=== PATIENT | female | born 1955 | race African-American/Black ===

== ENCOUNTER 2020-05-17 12:17 | Emergency (ER) | payer SELFPAY ==
[2020-05-17] MEDS ORDERED: Sodium Chloride 0.9% 10 ML Syringe FLUSH PRN (12:32)
[2020-05-17] MEDS ORDERED: Sodium Chloride 0.9% 2.5 ML Syringe FLUSH PRN (12:32)
[2020-05-17] MEDS ORDERED: Lactated Ringers 1,000 ML IV ONE ×2 (12:42→13:56)
[2020-05-17] MEDS ORDERED: Aspirin 325 MG Tab PO ONE (12:42)
--- NOTE | 2020-05-17 12:45 | EDM.PDOC ---
ED [facility] GENERAL MEDICAL PROBLEM - General Chief Complaint: Chest Pain Stated Complaint: CHEST PAIN Time Seen by Provider: 05/17/20 12:27 Source of Information: Reports: Patient, Old Records History Limitations: Reports: No Limitations - History of Present Illness INITIAL COMMENTS - FREE TEXT/NARRATIVE: This is a 64-year-old female the past medical history of diabetes mellitus, hy pertension, hyperlipidemia, hepatitis B presenting with chest pain and palpitations. Onset of substernal chest pain around midnight tonight while at rest. Also noticed that her heart rate was fast. Chest pain described as "aching", nonradiating, constant. Nothing makes it better or worse. No history of prior chest pain like this. Denies any fever, recent illness, cough, hemoptysis, vomiting, diarrhea, leg swelling. No history of venous thromboembolism, lower extremity swelling or pain, recent surgery or immobilization or long travel, history of malignancy, history of hormone use. ROS: A 10-point review of systems was negative, except as noted in the HPI (or in the ROS section of this note). Past medical history: Reviewed, no additional pertinent history. Surgical history: Reviewed in system, no additional pertinent history. Social history: Reviewed in system, no additional pertinent history. Family history: Reviewed in system, no additional pertinent history. PHYSICAL EXAM Vital signs reviewed. Nursing notes reviewed. Constitutional: Awake, alert, non-distressed. Head: Normocephalic, atraumatic. Eyes: EOMI, conjunctiva normal, no discharge, no scleral icterus. Ears, Nose, Throat: External ears and nose normal, moist oral mucosa. Cardiovascular: Tachycardic, 2+ radial pulses bilaterally, capillary refill less than 2 seconds. RRR no MRG. No lower extremity edema. Pulmonary: normal work of breathing, no accessory muscle use. CTA BL. Abdomen/GI: Soft, nontender, nondistended, no guarding or rigidity, no masses. Musculoskeletal: No deformities. Integumentary: Appropriate color for ethnicity, warm, dry, no pallor or jaundice, no rash. Neurologic: Alert, answering questions appropriately, normal speech, no facial droop, moving all extremities well. Psychiatric: Appropriate mood and affect, normal thought process. sternal chest Pain Score (Numeric/FACES): 4 - Related Data Allergies Allergy/AdvReac Type Severity Reaction Status Date / Time No Known Allergies Allergy Verified 05/17/20 12:35 Home Meds: Home Meds Glimepiride 8 mg PO DAILY 05/17/20 [History] Losartan [Cozaar] 100 mg PO DAILY 05/17/20 [History] amLODIPine [Norvasc] 10 mg PO DAILY 05/17/20 [History] metFORMIN [Glucophage] 1,000 mg PO BID 05/17/20 [History] Past Medical History Cardiovascular History: Reports: CAD, Hypertension Endocrine/Metabolic History: Reports: Diabetes, Type II - Infectious Disease History Infectious Disease History: Reports: Chicken Pox - Past Surgical History Female Surgical History: Reports: Hysterectomy Social & Family History - Family History Family Medical History: Noncontributory - Tobacco Use Smoking Status *Q: Never Smoker - Alcohol Use Alcohol Use History: No - Recreational Drug Use Recreational Drug Use: No ED ROS GENERAL - Review of Systems Review Of Systems: See Below ED EXAM, GENERAL - Physical Exam Exam: See Below EKG INTERPRETATION EKG Interpretation Comments: 12-Lead ECG Interpretation Acquired: 12:21PM Rhythm: Sinus tachycardia Rate: 132 Turner: Normal Intervals: Normal Ectopy: None Ischemic Changes: None apparent RV Strain: No obvious RV strain pattern. ST Segments/T-Waves: No notable changes Interpretation: Unremarkable Course - Vital Signs Text/Narrative:: Considered arrhythmia, anemia, volume depletion, acute coronary syndrome, pulmonary embolism, thyroid disease, drug or alcohol intoxication, infection, etc. Initial heart rate 130 at the bedside, improved to the 80s after aspirin and 2 L of fluid. Twelve-lead EKG shows sinus tachycardia but no arrhythmia or acute ischemia, no evidence of right ventricular strain. Low risk by HEART score with a score of 3. Wells PE score 4.5 (moderate) with negative D-dimer. Patient is afebrile and gives no history to suggest infection. Hemoglobin is normal. Troponin testing is negative with constant chest pain greater than 6 hours. Glucose mildly elevated 235 with normal carbon dioxide. TSH is mildly elevated at 3.78. Chest x-ray is clear. Patient feels better after IV fluids and aspirin and her tachycardia has res olved. Her blood pressure is also much better. I reevaluated her at 1456 hrs. and she feels totally back to normal and is no longer symptomatic. Her chest discomfort has totally resolved. The etiology of her complaints is not entirely clear but there is no evidence of an emergency medical condition that warrants admission the hospital or further testing or specialist consultation. No objective evidence of myocardial ischemia or pulmonary embolism by blood work. Patient clinically does not appear volume depleted but did improve with fluids. She is well-appearing and stable to discharge home with outpatient primary care follow-up. No longer tachycardic after IV fluids. Plan: Patient is stable to discharge home with outpatient primary care clinic follow-up. Strict emergency department return precautions were provided, patient indicated understanding. All questions were answered prior to departure. Discharged in good condition. HEART Score for Major Cardiac Events RESULT SUMMARY: 3 points Low Score (0-3 points) Risk of MACE of 0.9-1.7%. INPUTS: History > 0 = Slightly suspicious EKG > 0 = Normal Age > 1 = 45-64 Risk factors > 2 = ?3 risk factors or history of atherosclerotic disease Initial troponin > 0 = ?normal limit Wells' Criteria for Pulmonary Embolism RESULT SUMMARY: 4.5 points Moderate risk group: 16.2% chance of PE in an ED population. Another study assigned scores ? 4 as PE Unlikely and had a 3% incidence of PE. Another study assigned scores > 4 as INPUTS: Clinical signs and symptoms of DVT > 0 = No PE is #1 diagnosis OR equally likely > 3 = Yes Heart rate > 100 > 1.5 = Yes Immobilization at least 3 days OR surgery in the previous 4 weeks > 0 = No Previous, objectively diagnosed PE or DVT > 0 = No Hemoptysis > 0 = No Malignancy w/ treatment within 6 months or palliative > 0 = No Last Recorded V/S: Last Vital Signs Temp 36.4 C 05/17/20 12:32 Pulse 88 05/17/20 14:28 Resp 18 05/17/20 14:28 BP 128/71 05/17/20 14:28 Pulse Ox 98 05/17/20 14:28 - Orders/Labs/Meds Orders: Active Orders 24 hr Category Date Time Status Cardiac Monitoring [RC] . DIRECTED Care 05/17/20 12:32 Active EKG Documentation Completion [RC] STAT Care 05/17/20 12:32 Active Pulse Oximetry [RC] ASDIRECTED Care 05/17/20 12:32 Active LACTATE WITH REFLEX [BG] Stat Lab 05/17/20 12:33 Ordered Sodium Chloride 0.9% [Saline Flush] Med 05/17/20 12:32 Active 10 ml FLUSH ASDIRECTED PRN Sodium Chloride 0.9% [Saline Flush] Med 05/17/20 12:32 Active 2.5 ml FLUSH ASDIRECTED PRN Saline Lock Insert [OM.PC] Stat Oth 05/17/20 12:32 Ordered Medication Orders Sodium Chloride (Saline Flush) 10 ml FLUSH ASDIRECTED PRN PRN Reason: Keep Vein Open Last Admin: 05/17/20 13:02 Dose: 10 ml Documented by: FLAKITA Sodium Chloride (Saline Flush) 2.5 ml FLUSH ASDIRECTED PRN PRN Reason: Keep Vein Open Last Admin: 05/17/20 13:02 Dose: 2.5 ml Documented by: FLAKITA Labs: Laboratory Tests 05/17/20 05/17/20 05/17/20 Range/Units 12:20 12:28 12:28 WBC 6.57 (4.0-11.0) K/uL RBC 4.91 (4.30-5.90) M/uL Hgb 14.0 (12.0-16.0) g/dL Hct 40.6 (36.0-46.0) % MCV 82.7 (80.0-98.0) fL MCH 28.5 (27.0-32.0) pg MCHC 34.5 (31.0-37.0) g/dL RDW Std Deviation 38.1 (28.0-62.0) fl RDW Coeff of Nikhil 13 (11.0-15.0) % Plt Count 130 L (150-400) K/uL MPV 11.40 (7.40-12.00) fL Neut % (Auto) 35.1 L (48.0-80.0) % Lymph % (Auto) 58.1 H (16.0-40.0) % [place] % (Auto) 5.8 (0.0-15.0) % Eos % (Auto) 0.8 (0.0-7.0) % Baso % (Auto) 0.2 (0.0-1.5) % Neut # (Auto) 2.3 (1.4-5.7) K/uL Lymph # (Auto) 3.8 H (0.6-2.4) K/uL [place] # (Auto) 0.4 (0.0-0.8) K/uL Eos # (Auto) 0.1 (0.0-0.7) K/uL Baso # (Auto) 0.0 (0.0-0.1) K/uL D-Dimer, Quantitative 0.33 (0.0-0.50) mg/L FEU Sodium 136 (136-145) mmol/L Potassium 3.9 (3.5-5.1) mmol/L Chloride 101 (98-107) mmol/L Carbon Dioxide 26.2 (21.0-32.0) mmol/L BUN 13 (7.0-18.0) mg/dL Creatinine 0.9 (0.6-1.0) mg/dL Est Cr Clr Drug Dosing TNP Estimated GFR (MDRD) > 60.0 ml/min Glucose 235 H (74-106) mg/dL Calcium 9.0 (8.5-10.1) mg/dL Total Bilirubin 0.4 (0.2-1.0) mg/dL AST 45 H (15-37) IU/L ALT 59 (14-63) IU/L Alkaline Phosphatase 106 (46-116) U/L Troponin I < 0.050 (0.000-0.056) ng/mL Total Protein 9.1 H (6.4-8.2) g/dL Albumin 4.1 (3.4-5.0) g/dL Globulin 5.0 H (2.6-4.0) g/dL Albumin/Globulin Ratio 0.8 L (0.9-1.6) TSH 3rd Generation (0.36-3.74) uIU/mL 05/17/20 Range/Units 12:28 WBC (4.0-11.0) K/uL RBC (4.30-5.90) M/uL Hgb (12.0-16.0) g/dL Hct (36.0-46.0) % MCV (80.0-98.0) fL MCH (27.0-32.0) pg MCHC (31.0-37.0) g/dL RDW Std Deviation (28.0-62.0) fl RDW Coeff of Nikhil (11.0-15.0) % Plt Count (150-400) K/uL MPV (7.40-12.00) fL Neut % (Auto) (48.0-80.0) % Lymph % (Auto) (16.0-40.0) % [place] % (Auto) (0.0-15.0) % Eos % (Auto) (0.0-7.0) % Baso % (Auto) (0.0-1.5) % Neut # (Auto) (1.4-5.7) K/uL Lymph # (Auto) (0.6-2.4) K/uL [place] # (Auto) (0.0-0.8) K/uL Eos # (Auto) (0.0-0.7) K/uL Baso # (Auto) (0.0-0.1) K/uL D-Dimer, Quantitative (0.0-0.50) mg/L FEU Sodium (136-145) mmol/L Potassium (3.5-5.1) mmol/L Chloride (98-107) mmol/L Carbon Dioxide (21.0-32.0) mmol/L BUN (7.0-18.0) mg/dL Creatinine (0.6-1.0) mg/dL Est Cr Clr Drug Dosing Estimated GFR (MDRD) ml/min Glucose (74-106) mg/dL Calcium (8.5-10.1) mg/dL Total Bilirubin (0.2-1.0) mg/dL AST (15-37) IU/L ALT (14-63) IU/L Alkaline Phosphatase (46-116) U/L Troponin I (0.000-0.056) ng/mL Total Protein (6.4-8.2) g/dL Albumin (3.4-5.0) g/dL Globulin (2.6-4.0) g/dL Albumin/Globulin Ratio (0.9-1.6) TSH 3rd Generation 3.78 H (0.36-3.74) uIU/mL Meds: Medications Generic Name Dose Route Start Last Admin Trade Name Theron PRN Reason Stop Dose Admin Sodium Chloride 10 ml 05/17/20 12:32 05/17/20 13:02 Saline Flush FLUSH 10 ml ASDIRECTED PRN Administration Keep Vein Open Sodium Chloride 2.5 ml 05/17/20 12:32 05/17/20 13:02 Saline Flush FLUSH 2.5 ml ASDIRECTED PRN Administration Keep Vein Open Discontinued Medications Generic Name Dose Route Start Last Admin Trade Name Theron PRN Reason Stop Dose Admin Aspirin 325 mg 05/17/20 12:42 05/17/20 12:57 Aspirin PO 05/17/20 12:43 325 mg ONETIME ONE Administration Lactated Ringer's 1,000 mls @ 999 mls/hr 05/17/20 12:42 05/17/20 12:57 Ringers, Lactated IV 05/17/20 13:42 999 mls/hr .BOLUS ONE Administration Lactated Ringer's 1,000 mls @ 999 mls/hr 05/17/20 13:56 05/17/20 14:05 Ringers, Lactated IV 05/17/20 14:56 999 mls/hr .BOLUS ONE Administration Departure - Departure Time of Disposition: 14:57 Disposition: Home, Self-Care 01 Condition: Good Clinical Impression: Atypical chest pain, Sinus tachycardia Instructions: Nonspecific Chest Pain, Adult, Sinus Tachycardia Referrals: [facility] - Family Practice [Provider Group] - 1 Week (Follow-up with your primary doctor or our family medicine clinic in 1 week for reevaluation.) Forms: ED Department Discharge Additional Instructions: You were seen in the emergency department for chest pain and fast heart rate. Your heart rate resolved with IV fluids and I am glad that your symptoms are gone. At this point, your EKG, x-rays, and blood work all look reassuring. I am not entirely certain what caused your symptoms of I am glad that you are feeling better at this point. We will let you go home and I would like for you to follow-up closely with your doctor in the next week for reevaluation. Return the ER immediately for worsening symptoms including repeat chest pain, shortness of breath, or any other new or concerning symptoms. Please return the emergency department immediately if your symptoms worsen or if you feel worse. Thank you for choosing the [facility] in [place] for your medical needs today. It was a pleasure caring for you. The following information is given to patients seen in the emergency department who are being discharged. This information is to outline your options for follow-up care. We provide all patients seen in our emergency department with a follow-up referral. The need for follow-up, as well as the timing and circumstances, are variable depending upon the specifics of your emergency department visit. If you don't have a primary care physician on staff, we will provide you with a referral. We always advise you to contact your personal physician following an emergency department visit to inform them of the circumstance of the visit and for follow-up with them and/or the need for any referrals to a consulting specialist. The emergency department will also refer you to a specialist when appropriate. This referral assures that you have the opportunity for follow-up care with a specialist. All of these measure are taken in an effort to provide you with optimal care, which includes your follow-up. Under all circumstances we always encourage you to contact your private physician who remains a resource for coordinating your care. When calling for follow-up care, please make the office aware that this follow-up is from your recent emergency room visit. If for any reason you are refused follow-up, please contact the [facility] Emergency Department at and asked to speak to the emergency department charge nurse. If you do not have a primary care physician that is caring for you, you can contact these clinics below to set up an appointment to establish care: [facility] - Primary Care [address] [place] [id number] [facility] [address] [place] [id number] Sepsis Event Note (ED) - Evaluation Sepsis Screening Result: No Definite Risk - Focused Exam Vital Signs: Vital Signs Temp Pulse Resp BP Pulse Ox 08/11/20 14:28 88 18 128/71 98 05/17/20 13:00 119 H 18 166/84 H 97 05/17/20 12:32 36.4 C 144 H 18 164/109 H 97 - My Orders Last 24 Hours: My Active Orders 05/17/20 12:32 Cardiac Monitoring [RC] . DIRECTED EKG Documentation Completion [RC] STAT Pulse Oximetry [RC] ASDIRECTED Sodium Chloride 0.9% [Saline Flush] 10 ml FLUSH ASDIRECTED PRN Sodium Chloride 0.9% [Saline Flush] 2.5 ml FLUSH ASDIRECTED PRN Saline Lock Insert [OM.PC] Stat 05/17/20 12:33 LACTATE WITH REFLEX [BG] Stat - Assessment/Plan Last 24 Hours: My Active Orders 05/17/20 12:32 Cardiac Monitoring [RC] . DIRECTED EKG Documentation Completion [RC] STAT Pulse Oximetry [RC] ASDIRECTED Sodium Chloride 0.9% [Saline Flush] 10 ml FLUSH ASDIRECTED PRN Sodium Chloride 0.9% [Saline Flush] 2.5 ml FLUSH ASDIRECTED PRN Saline Lock Insert [OM.PC] Stat 05/17/20 12:33 LACTATE WITH REFLEX [BG] Stat
[2020-05-17 13:07] LABS: BLOOD UREA NITROGEN,BUN 13 mg/dL (7.0-18.0); CARBON DIOXIDE,CO2 26.2 mmol/L (21.0-32.0); CHLORIDE,CL 101 mmol/L (98-107); GLUCOSE RANDOM 235 mg/dL (74-106); POTASSIUM,K 3.9 mmol/L (3.5-5.1); SODIUM,NA 136 mmol/L (136-145)
--- NOTE | 2020-05-17 13:42 | CR ---
Chest: Frontal view of the chest was obtained. Comparison: No previous chest imaging. Heart size is normal. Tortuous thoracic aorta is seen. Lungs are clear with no acute parenchymal change. Scattered degenerative endplate spurring is noted within the spine with minimal scoliosis. Impression: 1. Degenerative change within the spine. 2. Nothing acute is appreciated on frontal chest x-ray. Diagnostic code #2 Study was dictated in MDT
== END 2020-05-17 15:07 | disposition home or self-care (01) ==
LOC: MW.ED 12:17
DX: R07.89 Other chest pain (principal); R00.0 Tachycardia, unspecified; I25.10 Atherosclerotic heart disease of native coronary artery without angina pectoris; E11.9 Type 2 diabetes mellitus without complications; I10 Essential (primary) hypertension; Z79.84 Long term (current) use of oral hypoglycemic drugs; Z79.899 Other long term (current) drug therapy
CPT/HCPCS: 36415; 71045; 80053; 84443; 84484; 85025; 85379; 93005; 96360; 96361; 99285; A9270; J7120